=== PATIENT | male | born 1970 | race African-American/Black ===

== ENCOUNTER 2022-11-28 15:24 | Emergency (ER) | payer OTHER, SELFPAY ==
[2022-11-28 15:39] VITALS: BP 148/108; PULSE 103; RESP 12; TEMP 36.8; O2SAT 100
[2022-11-28 15:42] VITALS: BP 148/108; PULSE 103; RESP 12; TEMP 36.8; O2SAT 100
--- NOTE | 2022-11-28 16:13 | ED.SKABFB ---
HPI - Skin/Abscess/Foreign Bdy General Chief complaint: Skin/Abscess/Foreign Body Stated complaint: Right Hand Pain Time Seen by Provider: 11/28/22 16:10 Source: patient, RN notes reviewed and old records reviewed Mode of arrival: ambulatory Limitations: no limitations History of Present Illness HPI narrative: 52 year old male who presents to express care with complaints of having swollen painful area to the medial aspect of his right index finger along the PIP region of finger which is fluctuant and painful to touch. Patient reports that there is so much pressure in the PIP joint area that he is unable to bend his right index finger. Patient has no noted redness or warmth to tissue area and no fevers reported. Patient reports that about 2 years ago in [place] he had to have the same area drained due to same symptoms.Patient reports always had a small knot area on his finger since was kid only bothered him if he hit it on something complaint: abscess/boil and other Onset (ago): day(s) (2) Location: R hand (right index finger) Severity scale (1-10): 7 Quality: sharp Exacerbating factors: movement Treatments prior to arrival: other (cleansed with alcohol) Related Data Home Medications Medication Instructions Recorded Confirmed olmesartan 20 tablet 11/28/22 mg-hydrochlorothiazide 12.5 mg tablet Allergies Allergy/AdvReac Type Severity Reaction Status Date / Time No Known Allergies Allergy Verified 11/28/22 15:42 Review of Systems Review of Systems: CONSTITUTIONAL: Denies fever, chills, or sweats. CARDIOVASCULAR: Denies chest pain, palpitations, or edema. RESPIRATORY: Denies cough or dyspnea. GASTROINTESTINAL: Denies abdominal pain, nausea, vomiting SKIN: Reports swelling with tenderness to medial aspect of right index finger at PIP region. Denies drainage, no vesicles, tissue is fluctuant and tender to palpation, no pain beyond proportion, difficulty bending finger. MUSCULOSKELETAL: Denies myalgia. NEUROLOGIC: Denies headache, numbness All systems reviewed & are unremarkable except as noted in HPI and below PMFSH Past Medical History Medical History (Updated 11/28/22 @ 17:08 by Frida Hansen NP) Hypertension Surgical History Surgical History (Updated 11/28/22 @ 17:08 by Frida Hansen NP) History of spinal surgery Social History Social History (Updated 11/28/22 @ 17:10 by Frida Hansen NP) Smoking status: Current every day smoker Alcohol intake: current Alcohol use details: social Substance use type: does not use Comments At time of signature, agree with nursing past medical, surgical, social and family history. There is no relevant family history pertinent to the presenting complaint Exam Narrative: GENERAL: Well-appearing, well-nourished, and in no acute distress. HEAD: Normocephalic, atraumatic. EYES: PERRLA and EOMI. ENT: Nares clear, no rhinorrhea or epistaxis. Mucous membranes moist.TM's normal, throat pink with no lesions or exudates. NECK: Supple.no lymphadenopathy CHEST: Clear to auscultation. No respiratory distress.SAO2 100% on room air HEART: Regular rate and rhythm. No murmur heard. Normal peripheral pulses. ABDOMEN: Soft, nontender, nondistended, normal active bowel sounds. EXTREMITIES: Normal range of motion. No edema. SKIN: Warm, dry. Swelling, fluctuant, tenderness, right index finger medial aspect of PIP. No vesicles or crepitus noted NEURO: No focal deficits. Alert and oriented x3. Course Course Emergency Course: Patient is aware of diagnosis, understands and agrees to treatment plan. Anticipatory guidance given. Patient agrees to follow-up as directed and is aware of reasons to seek care at the emergency department. Portions of this record may have been created with voice recognition software Level of Care: Express Care Visit Vital Signs Vital signs: Vital Signs Temperature 36.8 C 11/28/22 15:39 Pulse Rate 103 H 11/28/22 15
[2022-11-28 16:37] VITALS: BP 138/92
== END 2022-11-28 16:37 | disposition home or self-care (01) ==
PROVIDERS: Emergency Provider Registered Nurse; PCP Family Medicine
DX: L02.511 Cutaneous abscess of right hand (principal); F17.200 Nicotine dependence, unspecified, uncomplicated; I10 Essential (primary) hypertension
CPT/HCPCS: 26010; 87070; 87075; 87205; 99213; G0463